=== PATIENT | female | born 1955 | race Caucasian/White ===

== ENCOUNTER 2016-07-06 18:32 | Emergency (ER) | payer OTHER ==
[~2016-07-06] VITALS: Ht 172.7 cm; Wt 72.6 kg
--- NOTE | 2016-07-06 18:32 | NUR ---
Patient to ER bed 6 to gown for evaluation. Side rails up. Report given to Estrella AUGUST.
[2016-07-06 18:41] VITALS: BP_SYST 161
[2016-07-06 18:49] VITALS: BP_SYST 159
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
--- NOTE | 2016-07-06 19:05 | NUR ---
[employer] SUPER[employer]ENDENT IN TO SEE PT.
[2016-07-06] MEDS ORDERED: BACITRACIN 1 GM OINT TP ONE (19:15)
[2016-07-06] MEDS ORDERED: LIDOCAINE 1% 10 MG/ML, 20 ML MDV INJ ONE (19:15)
--- NOTE | 2016-07-06 19:28 | NUR ---
CARE ENDORSED TO ONCANGEL AUGUST.
[2016-07-06 20:35] VITALS: BP_SYST 159
--- NOTE | 2016-07-06 20:35 | NUR ---
Patient given written and verbal discharge instructions and verbalizes understanding. ER MD discussed with patient the results and treatment provided. Patient in stable condition. ID arm band removed. Rx of TRAMADOL, TYLENOL, AUGMENTIN given. Patient educated on pain management and to follow up with PMD. Pain Scale 1/10, PT STATES PAIN IS TOLERABLE, AMBUALTED W/ STEADY GAIT. Opportunity for questions provided and answered.
== END 2016-07-06 20:35 | disposition home or self-care (01) ==
LOC: SED 18:32
DX: S61.412A Laceration without foreign body of left hand, initial encounter (principal); S20.111A Abrasion of breast, right breast, initial encounter; M79.644 Pain in right finger(s); M25.561 Pain in right knee; E11.9 Type 2 diabetes mellitus without complications; I10 Essential (primary) hypertension; E78.00 Pure hypercholesterolemia, unspecified; V89.2XXA Person injured in unspecified motor-vehicle accident, traffic, initial encounter; Y93.89 Activity, other specified; Y99.8 Other external cause status; Y92.89 Other specified places as the place of occurrence of the external cause
CPT/HCPCS: 12002; 29130; 73130; 73564; 99284; J2001